=== PATIENT | male | born 1985 | race Caucasian/White ===

== ENCOUNTER 2017-04-22 13:50 | Emergency (ER) | payer SELFPAY ==
[2017-04-22] MEDS ORDERED: DIPH/PERTUSS(ACELL)/TETANUS VAC/PF 0.5 ML SYR (>=10YO) IM ONE (15:20)
--- NOTE | 2017-04-22 15:24 | ER Document Report ---
ED Medical Screen (RME) - General Chief Complaint: Dizziness Stated Complaint: FALL/FLANK PAIN Time Seen by Provider: 04/22/17 15:16 Mode of Arrival: Medic Notes: This is a 32-year-old morbidly obese male who presents via EMS after syncope. He states that he walked about a quarter of a mile to the grocery store. As he was staying in the checkout line and he began to feel weak. He asked for a place where he can sit down and as he walked towards that area, he had a syncopal episode. He fell forward and hit his face and head. He denies prior history of syncope. He denies preceding chest pain or palpitations. Currently he reports left-sided rib cage pain as well as left shoulder pain and mouth pain, with dental trauma from the fall. I have greeted and performed a rapid initial assessment of this patient. A comprehensive ED assessment and evaluation of the patient, analysis of test results and completion of the medical decision making process will be conducted by additional ED providers. TRAVEL OUTSIDE OF THE [place] IN LAST 30 DAYS: No - Related Data Allergies/Adverse Reactions: No Known Allergies Allergy (Verified 04/22/17 14:59) Past Medical History Renal/ Medical History: Denies: Hx Peritoneal Dialysis Musculoskeltal Medical History: Reports Hx Arthritis - Rheumatoid Psychiatric Medical History: Reports: Hx Anxiety, Hx Bipolar Disorder - Immunizations Hx Diphtheria, Pertussis, Tetanus Vaccination: No Physical Exam - Vital signs Vitals: Temp Pulse Resp BP Pulse Ox 98.1 F 86 18 128/88 H 95 04/22/17 13:56 04/22/17 13:56 04/22/17 13:56 04/22/17 13:56 04/22/17 13:56 Course - Vital Signs Vital signs: Temp Pulse Resp BP Pulse Ox 98.1 F 86 18 128/88 H 95 04/22/17 13:56 04/22/17 13:56 04/22/17 13:56 04/22/17 13:56 04/22/17 13:56
[2017-04-22] MEDS ORDERED: KETOROLAC TROMETHAMINE INJ/PF 30 MG/1 ML SDV IV ONE (15:51)
[2017-04-22] MEDS ORDERED: NORMAL SALINE 1000 ML 1,000 ML IV PRN (15:51)
--- NOTE | 2017-04-22 15:54 | RADIOLOGY REPORT (SQ) ---
EXAM DESCRIPTION: CHEST SINGLE VIEW COMPLETED DATE/TIME: 04/22/2017 3:45 pm REASON FOR STUDY: syncope, left ribcage pain COMPARISON: 10/10/2014. EXAM PARAMETERS: NUMBER OF VIEWS: One view. TECHNIQUE: Single frontal radiographic view of the chest acquired. RADIATION DOSE: NA LIMITATIONS: None. FINDINGS: LUNGS AND PLEURA: No opacities, masses or pneumothorax. No pleural effusion. MEDIASTINUM AND HILAR STRUCTURES: No masses. Contour normal. HEART AND VASCULAR STRUCTURES: Heart normal in size. Normal vasculature. BONES: No acute findings. HARDWARE: None in the chest. OTHER: No other significant finding. IMPRESSION: NO ACUTE RADIOGRAPHIC FINDING IN THE CHEST. TECHNICAL DOCUMENTATION: JOB ID: [id number]
[2017-04-22 15:57] LABS: ABSOLUTE BASOPHILS # (AUTO) 0.1 10^3/uL (0.0-0.2); ABSOLUTE LYMPHOCYTES (AUTO) 1.2 10^3/uL (0.5-4.7); ABSOLUTE MONOCYTES (AUTO) 0.9 10^3/uL (0.1-1.4); ABSOLUTE NEUT (AUTO) 15.2 10^3/uL (1.7-8.2); BASOPHILS % (AUTO) 0.5 % (0-2); EOSINOPHILS % (AUTO) 0.3 % (0-6); HEMATOCRIT 50.5 % (37.9-51.0); HEMOGLOBIN 16.6 g/dL (13.5-17.0); HGB HCT DIFFERENCE -0.7; LYMPHOCYTES % (AUTO) 6.9 % (13-45); MEAN CORPUSCULAR HEMOGLOBIN 31.3 pg (27.0-33.4); MEAN CORPUSCULAR HGB CONC 32.9 g/dL (32.0-36.0); MEAN CORPUSCULAR VOLUME 95 fl (80-97); MONOCYTES % (AUTO) 5.1 % (3-13); RED CELL DISTRIBUTION WIDTH 12.5 % (11.5-14.0); SEGMENTED NEUTROPHILS % (AUTO) 87.2 % (42-78); WHITE BLOOD COUNT 17.5 10^3/uL (4.0-10.5)
[2017-04-22 16:07] LABS: ALANINE AMINOTRANSFERASE 40 U/L (21-72); ALBUMIN 4.6 g/dL (3.5-5.0); ALKALINE PHOSPHATASE 113 U/L (38-126); ANION GAP 16 (5-19); ASPARTATE AMINO TRANSFERASE 35 U/L (17-59); BILIRUBIN,DIRECT 0.3 mg/dL (0.0-0.4); BLOOD UREA NITROGEN 13 mg/dL (7-20); CALCIUM 9.6 mg/dL (8.4-10.2); CARBON DIOXIDE 24 mmol/L (22-30); CHLORIDE 99 mmol/L (98-107); CREATINE KINASE 99 U/L (55-170); CREATININE RESULT 1.18 mg/dL (0.52-1.25); GLUCOSE 116 mg/dL (75-110); POTASSIUM 4.3 mmol/L (3.6-5.0); SODIUM 139.4 mmol/L (137-145); TOTAL PROTEIN 8.4 g/dL (6.3-8.2)
[2017-04-22 16:19] LABS: TROPONIN I < 0.012 ng/mL
--- NOTE | 2017-04-22 18:12 | ER Document Report ---
ED General - General Chief Complaint: Dizziness Stated Complaint: FALL/FLANK PAIN Time Seen by Provider: 04/22/17 15:16 Mode of Arrival: Medic TRAVEL OUTSIDE OF THE [place] IN LAST 30 DAYS: No - HPI Patient complains to provider of: Syncope Notes: Patient coming in for evaluation of syncope. Patient states he walked to the local [facility] today when he was trying to check out passed out. Patient states he never had this happen before denies any head pain chest pain abdominal pain prior to or after the episode. Patient states he did hit his head when he fell forward patient does have a fracture of his number 8 incisor. Patient currently is resting fairly comfortably without any difficulty no signs of impending distress - Related Data Allergies/Adverse Reactions: No Known Allergies Allergy (Verified 04/22/17 14:59) Past Medical History - Social History Smoking Status: Unknown if Ever Smoked Family History: Arthritis Patient has suicidal ideation: No Patient has homicidal ideation: No Renal/ Medical History: Denies: Hx Peritoneal Dialysis Musculoskeltal Medical History: Reports Hx Arthritis - Rheumatoid Psychiatric Medical History: Reports: Hx Anxiety, Hx Bipolar Disorder - Immunizations Hx Diphtheria, Pertussis, Tetanus Vaccination: No Review of Systems - Review of Systems Constitutional: No symptoms reported EENT: No symptoms reported Cardiovascular: No symptoms reported Respiratory: No symptoms reported Gastrointestinal: No symptoms reported Genitourinary: No symptoms reported Male Genitourinary: No symptoms reported Musculoskeletal: No symptoms reported Skin: No symptoms reported Hematologic/Lymphatic: No symptoms reported Neurological/Psychological: No symptoms reported Physical Exam - Vital signs Vitals: Temp Pulse Resp BP Pulse Ox 98.1 F 86 18 128/88 H 95 04/22/17 13:56 04/22/17 13:56 04/22/17 13:56 04/22/17 13:56 04/22/17 13:56 Interpretation: Normal - General General appearance: Appears well, Alert - HEENT Head: Normocephalic, Atraumatic Eyes: Normal Pupils: PERRL Notes: Dental fracture tooth #8 - Respiratory Respiratory status: No respiratory distress Chest status: Nontender Breath sounds: Normal Chest palpation: Normal - Cardiovascular Rhythm: Regular Heart sounds: Normal auscultation Murmur: No - Abdominal Inspection: Normal Distension: No distension Bowel sounds: Normal Tenderness: Nontender Organomegaly: No organomegaly - Back Back: Normal, Nontender - Extremities General upper extremity: Normal inspection, Nontender, Normal color, Normal ROM , Normal temperature General lower extremity: Normal inspection, Nontender, Normal color, Normal ROM , Normal temperature, Normal weight bearing. No: Shankar's sign - Neurological Neuro grossly intact: Yes Cognition: Normal Orientation: AAOx4 Romance Coma Scale Eye Opening: Spontaneous Romance Coma Scale Verbal: Oriented Romance Coma Scale Motor: Obeys Commands Romance Coma Scale Total: 15 Speech: Normal Motor strength normal: LUE, RUE, LLE, RLE Sensory: Normal - Psychological Associated symptoms: Normal affect, Normal mood - Skin Skin Temperature: Warm Skin Moisture: Dry Skin Color: Normal Course - Re-evaluation Re-evalutation: 04/22/17 19:24 Patient was to be orthostatic on his vital signs. Patient was given IV fluids. Laboratory studies and x-ray revealed no critical etiology. Patient was encouraged follow-up with [facility] patient was started on penicillin because of dental fracture - Vital Signs Vital signs: Temp Pulse Resp BP Pulse Ox 98.1 F 77 18 153/88 H 95 04/22/17 13:56 04/22/17 16:19 04/22/17 13:56 04/22/17 16:19 04/22/17 13:56 - Laboratory Result Diagrams: 04/22/17 15:35 04/22/17 15:35 Laboratory results interpreted by me: 04/22/17 04/22/17 15:35 15:35 WBC 17.5 H Seg Neutrophils % 87.2 H Lymphocytes % 6.9 L Absolute Neutrophils 15.2 H Glucose 116 H Total Protein 8.4 H Discharge - Discharge Clinical Impression: Syncope due to orthostatic hypotension Condition: Good Disposition: HOME, SELF-CARE Instructions: Dizziness ([facility]), Dehydration ([facility]), Dental Injury ([facility]), Dentist Additional Instructions: Your laboratory studies show no critical pathology. I will highly recommend she follow-up with a local dentist or dentist provided for your chipped tooth. We will place you on antibiotics to prevent infection. Please make sure that you are rinsing her mouth out after every meal. More likely reason for syncope today is due to dehydration. Please make sure to drink plenty water to stay hydrated. Take medication as prescribed. Prescriptions: Penicillin V Potassium [Penicillin Vk 500 mg Tablet] 500 mg PO BID #20 tablet Tramadol HCl [Ultram 50 mg Tablet] 50 mg PO ASDIR PRN #20 tablet PRN Reason:
[2017-04-22 18:36] VITALS: BP 158/85
--- NOTE | 2017-04-22 22:40 | EKG REPORT ---
SEVERITY:- ABNORMAL ECG - SINUS RHYTHM NONSPECIFIC INTRAVENTRICULAR CONDUCTION DELAY LEFT VENTRICULAR HYPERTROPHY : Confirmed by: Dannielle Alas 22-Apr-2017 22:40:05
== END 2017-04-22 18:44 | disposition home or self-care (01) ==
LOC: ER 13:50
DX: I95.1 Orthostatic hypotension (principal); R42 Dizziness and giddiness; R10.9 Unspecified abdominal pain; W18.30XA Fall on same level, unspecified, initial encounter
CPT/HCPCS: 93005; 99284; 90471; 96374; 36415; 82553; 82550; 85025; 80053; 84484; 71010; 90715; 93010; J1885; J7030